=== PATIENT | male | born 1990 | race Caucasian/White ===

== ENCOUNTER 2019-12-11 21:40 | Emergency (ER) | payer SELFPAY ==
[~2019-12-11] VITALS: Ht 182 cm; Wt 147.0 kg
[2019-12-11] MEDS ORDERED: OSELTAMIVIR 75 MG (TAMIFLU) CAPSULE PO ONE (23:00)
[2019-12-11] MEDS ORDERED: BENZ100C18 PO (23:05)
[2019-12-11] MEDS ORDERED: OSLT75C PO (23:05)
[2019-12-11] MEDS ORDERED: GUAI1TBM19 PO (23:05)
--- NOTE | 2019-12-11 23:05 | ED Cough/URI ---
General Chief Complaint: Cough/Cold/Flu Symptoms Stated Complaint: COUGH Source: patient History of Present Illness Date Seen by Provider: Dec 11, 2019 Time Seen by Provider: 22:40 Initial Comments PT ARRIVES VIA POV FROM HOME STATES HE HAS BEEN SICK SINCE THURSDAY NIGHT HAS HAD PRODUCTIVE COUGH WITH COLORED SPUTUM, NASAL CONGESTION AND DRAINAGE HAS HAD SUBJECTIVE FEVER/SWEATS/CHILLS CHEST HURTS TO COUGH/BREATHE AND FEELS A LITTLE SHORT OF BREATH HAS NOT TAKEN ANYTHING FOR SYMPTOMS NO ONE ELSE IN HOUSEHOLD IS ILL, BUT WORKS AT LOCAL [employer], AND HAVE HAD MULTIPLE RESIDENTS AND CO-WORKERS THERE WITH INFLUENZA, AND PT HAS HAD MULTIPLE CO-WORKERS WITH INFLUENZA PT DENIES HISTORY OF RESPIRATORY PROBLEMS PT SMOKES 10/27 PPD DID NOT RECEIVE FLU VACCINATION THIS SEASON PCP: [facility] Allergies and Home Medications Allergies Coded Allergies: Penicillins (Verified Allergy, Severe, Anaphylaxis, 12/11/19) Home Medications Benzonatate 100 Mg Capsule, 1-2 TAB PO TID Prescribed by: DENIA TAVAREZ on 12/11/192304 Guaifenesin/Dextromethorphan 1 Each Tbmp.12hr, 1 EACH PO BID Prescribed by: DENIA TAVAREZ on 12/11/192304 Oseltamivir Phosphate 75 Mg Cap, 75 MG PO BID Prescribed by: DENIA TAVAREZ on 12/11/192304 Patient Home Medication List Home Medication List Reviewed: Yes Review of Systems Review of Systems Constitutional: see HPI, chills, diaphoresis, fever, malaise, weakness EENTM: see HPI, nose congestion; No ear pain, No throat pain Respiratory: see HPI, cough, short of breath; No wheezing Cardiovascular: see HPI, chest pain; No edema, No palpitations, No syncope Gastrointestinal: no symptoms reported; No diarrhea, No vomiting Genitourinary: no symptoms reported Musculoskeletal: see HPI (BODY ACHES) Skin: no symptoms reported Psychiatric/Neurological: No Symptoms Reported Hematologic/Lymphatic: No Symptoms Reported Immunological/Allergic: no symptoms reported Past [id number] Hx Past Med/Social Hx: Reviewed and Corrections made Patient Social History Alcohol Use: Denies Use Recreational Drug Use: No Smoking Status: Current Everyday Smoker (1/2 PPD) Type Used: Cigarettes (/2 PPD) Recent Foreign Travel: No Contact w/Someone Who Travel: No Past Medical History Surgeries: Yes (SURGERIES FOR BILATERAL CLUB FEET--HAS PINS IN FEET) Orthopedic Respiratory: No Cardiac: No Neurological: No Genitourinary: No Gastrointestinal: No Musculoskeletal: Yes (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 oz. kg; BMI Method: General Appearance: no apparent distress, obese, other (SPEECH IMPEDIMENT) HEENT: PERRL/EOMI, pharyngeal erythema (MILD), other (RIGHT TM INFLAMED, DULL, WITH EFFUSION. 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, no motor/sensory deficits, alert, normal mood/affect, oriented x 3 Skin: normal color, warm/dry Progress/Results/Core Measures Suspected Sepsis SIRS Temperature: Pulse: Respiratory Rate: Blood Pressure / Mean: Results/Orders Micro Results Microbiology 12/11/19 Influenza Types A,B Antigen (YULISSA) - Final, Complete My Orders Orders - DENIA TAVAREZ DO Influenza A And B Antigens (12/11/19 22:39) Oseltamivir 75 Mg Capsule (Tamiflu 75 (12/11/19 23:00) Benzonatate Capsule (Tessalon Perles) (12/11/19 23:15) Medications Given in ED Current Medications Medications Dose Ordered Sig/Vilma Route Start Time Stop Time Status Last Admin Dose Admin Oseltamivir Phosphate 75 mg ONCE ONCE PO 12/11/19 23:00 12/11/19 23:02 DC 12/11/19 23:18 75 MG Vital Signs/I&O Capillary Refill : Departure Impression Primary Impression: Influenza B Disposition: 01 HOME, SELF-CARE Condition: Stable Departure-Patient Inst. Referrals: NO,LOCAL PHYSICIAN (PCP/Family) Primary Care Physician Patient Instructions: Flu, Adult (DC) Add. Discharge Instructions: LOTS OF CLEAR LIQUIDS--WATER, BROTH, JELLO, GATORADE TYLENOL 1 GRAM/ MOTRIN 800 MG 4 TIMES A DAY FOR PAIN OR FEVER FOLLOW UP WITH YOUR DR IN 4-5 DAYS IF NO BETTER All discharge instructions reviewed with patient and/or family. Voiced understanding. Scripts Guaifenesin/Dextromethorphan (Mucinex Dm ER 1,200-60 mg Tab) 1 Each Tbmp.12hr 1 EACH PO BID for 10 Days, #20 EA Prov: DENIA TAVAREZ DO 12/11/19 Benzonatate (TESSALON PERLES) 100 Mg Capsule 1-2 TAB PO TID for Cough, #30 CAP Prov: DENIA TAVAREZ DO 12/11/19 Oseltamivir Phosphate (Tamiflu) 75 Mg Cap 75 MG PO BID, #10 CAP Prov: DENIA TAVAREZ DO 12/11/19 Work/School Note: Work Release Form Date Seen in the Emergency Department: Dec 11, 2019 Return to Work: Dec 19, 2019 Restrictions: No Restrictions DENIA TAVAREZ DO Dec 11, 2019 23:05
[2019-12-11] MEDS ORDERED: BENZONATATE 100 MG (TESSALON) CAPSULE PO SCH (23:15)
[2019-12-11 23:27] VITALS: BP 169/101
== END 2019-12-11 23:27 | disposition home or self-care (01) ==
LOC: ER 21:42
DX: J10.1 Influenza due to other identified influenza virus with other respiratory manifestations (principal); E66.01 Morbid (severe) obesity due to excess calories; F17.210 Nicotine dependence, cigarettes, uncomplicated; Z88.0 Allergy status to penicillin; Z68.41 Body mass index [BMI] 40.0-44.9, adult
CPT/HCPCS: 87804